=== PATIENT | male | born 1955 | race Two or more races ===

== ENCOUNTER 2019-11-20 05:36 | Inpatient (IN) | payer OTHER ==
[~2019-11-20] VITALS: Ht 185.4 cm; Wt 111.6 kg
[2019-11-20] VITALS (12 sets, daily range): BP systolic 118–146; BP diastolic 72–100
[2019-11-20] MEDS ORDERED: Succinylcholine 20mg/ml 10ml vial ONE (06:26)
[2019-11-20] MEDS ORDERED: Rocuronium Bromide 100mg/10ml Inj IV ONE (06:26)
[2019-11-20] MEDS ORDERED: Midazolam 2mg/2ml Inj ONE (06:34)
[2019-11-20] MEDS ORDERED: Lidocaine 1% MPF 10mg/ml 5ml ONE (06:34)
[2019-11-20] MEDS ORDERED: fentaNYL 100 mcg/2 mL IV ONE (06:34)
[2019-11-20] MEDS ORDERED: Phenylephrine 10mg/ml Vial ONE (06:34)
[2019-11-20] MEDS ORDERED: ASPIRIN81 MG ORAL (06:35)
[2019-11-20] MEDS ORDERED: Sterile Water Irrig 1000ml IRRIG ONE (07:00)
[2019-11-20] MEDS ORDERED: ceFAZolin sod 2 GM in NS 55 ML IVPB ONE (07:00)
[2019-11-20] MEDS ORDERED: NS Irrig 1000ml ONE (07:00)
[2019-11-20] MEDS ORDERED: propofoL 1,000mg/100ml IV ONE (07:00)
[2019-11-20] MEDS ORDERED: LR 1000ml ONE (07:00)
[2019-11-20] MEDS ORDERED: Thrombin 5000 units TOPIC ONE ×2 (07:03→08:05)
[2019-11-20] MEDS ORDERED: Vancomycin 1gm vial IVPB ONE (07:03)
[2019-11-20] MEDS ORDERED: Gelfoam Size TOPIC ONE ×2 (07:03→08:05)
[2019-11-20] MEDS ORDERED: Bacitracin 50000 Units Vial ONE (07:04)
--- NOTE | 2019-11-20 07:13 | Pre-Procedure Note/Attestation ---
Pre-Procedure Note/Attestation Complete Prior to Procedure Planned Procedure: not applicable Procedure Narrative: Anterior cervical discectomy and fusion of cervical 45,56,67 Indications for Procedure Pre-Operative Diagnosis: herniation and stenosis of C45,56,67 Attestation I attest that I discussed the nature of the procedure; its benefits; risks and complications; and alternatives (and the risks and benefits of such alternatives ), prior to the procedure, with the patient (or the patient's legal district representative). I attest that, if there was a reasonable possibility of needing a blood transfusion, the patient (or the patient's legal district representative) was given the [facility] standardized written summary, pursuant to the [place] Blood Safety Act ([place] Health and Safety Code # 1645, as amended). I attest that I re-evaluated the patient just prior to the surgery and that there has been no change in the patient's H&P, except as documented below: Nestor Maldonado MD Nov 20, 2019 07:13
--- NOTE | 2019-11-20 07:14 | Brief Operative Note ---
Immediate Post Operative Note Operative Note Chief Complaint: neck pain and radiculopathy Pre-op Diagnosis: herniation and stenosis of C45,56,67 Procedure: Anterior cervical discectomy and fusion of cervical 45,56,67 Post-op Diagnosis: same as pre-op Findings: consistent w/pre-op dx studies Surgeon: Joel Jacquard Card Cutter: Francisco Anesthesiologist: JUS Anesthesia: general Specimen: none Complications: none Condition: stable Fluids: IVF Estimated Blood Loss: minimal Drains: none Implant(s) used?: Yes - 3 nuvasive interlock c sz 5x2 sz 6x1 screws 13mmx9 Nestor Maldonado MD Nov 20, 2019 07:14
[2019-11-20] MEDS ORDERED: HYDROcodone/Acetamin 7.5/325 tab ORAL PRN ×2 (07:15)
[2019-11-20] MEDS ORDERED: HYDROcodone/Acetamin 5/325 tab ORAL PRN (07:15)
[2019-11-20] MEDS ORDERED: Morphine Sulfate 4mg/ml Inj (IV USE ONLY) IV PRN ×2 (07:15)
[2019-11-20] MEDS ORDERED: Naloxone 0.4mg/ml Inj IVP PRN (07:15)
[2019-11-20] MEDS ORDERED: Chloraseptic Spray 20mL Bottle ORAL PRN (07:15)
[2019-11-20] MEDS ORDERED: Milk of Magnesia 30ml Ud ORAL PRN (07:15)
[2019-11-20] MEDS ORDERED: HYDROmorphone 1mg/ml Carpuject IVP PRN (07:15)
[2019-11-20] MEDS ORDERED: Morphine Sulfate 2mg/ml Inj(IV/IM USE ONLY) IV PRN (07:15)
[2019-11-20] MEDS ORDERED: Metoclopramide 10mg/2ml Inj IVP PRN (07:15)
[2019-11-20] MEDS ORDERED: Morphine Sulfate 10mg/ml Inj ONE (08:06)
[2019-11-20] MEDS ORDERED: Sodium Chloride 10ml vial INJ ONE (08:07)
[2019-11-20] MEDS ORDERED: Glycopyrrolate 0.2mg/ml 1ml Vial ONE (08:10)
[2019-11-20] MEDS ORDERED: Ketorolac 30mg Inj ONE (08:10)
[2019-11-20] MEDS ORDERED: Neostigmine 1mg/ml 10ml Inj ONE (08:10)
--- NOTE | 2019-11-20 08:24 | Anethesia Preoperative Eval ---
Anesthesia Pre-op PMH/ROS General Date of Evaluation: Nov 20, 2019 Time of Evaluation: 06:52 Anesthesiologist: Yasir ASA Score: ASA 2 Mallampati Score Class I : Soft palate, uvula, fauces, pillars visible Class II: Soft palate, uvula, fauces visible Class III: Soft palate, base of uvula visible Class IV: Only hard plate visible Mallampati Classification: Class II Surgeon: Joel Diagnosis: Cervical radiculopathy Surgical Procedure: ACDF Anesthesia History: none Social History: smoking Family History: no anesthesia problems Allergies: Coded Allergies: No Known Allergies (Unverified , 11/20/19) Medications: see eMAR Patient NPO?: Yes Past Medical History Cardiovascular: Reports: HTN - borderline; Denies: CAD, [place], valve dz, arrhythmia, other Pulmonary: Reports: JOSE; Denies: asthma, COPD, other Gastrointestinal/Genitourinary: Reports: GERD - mild; Denies: CRI, ESRD, other Neurologic/Psychiatric: Reports: other - chrnic pain; Denies: dementia, CVA, depression/anxiety, TIA Endocrine: Denies: DM, hypothyroidism, steroids, other HEENT: Denies: cataract (L), cataract (R), glaucoma, MENOMINEE (L), MENOMINEE (R), other Hematology/Immune: Denies: anemia, DVT, bleeding disorder, other Musculoskeletal/Integumentary: Denies: OA, RA, DJD, DDD, edema, other Other: obesity PMH Narrative: as above PSxH Narrative: Hand Sx Anesthesia Pre-op Phys. Exam Physician Exam Last Vital Signs Date Time Temp Pulse Resp B/P (MAP) Pulse Ox O2 Delivery O2 Flow Rate FiO2 11/20/19 06:23 Room Air 11/20/19 06:22 97.0 95 20 128/84 (99) 98 Constitutional: NAD Neurologic: CN 2-12 intact Cardiovascular: RRR, no M/R/G Respiratory: CTA Gastrointestinal: other - obesity Airway Exam Mallampati Score: Class III MO: limited Neck: Short ROM: limited Teeth: missing Dentures: upper, lower Anesthesia Pre-op A/P Labs see chart Studies Pre-op Studies: EKG - NSR, CXR - WNL, echo - EF 55-60% Risk Assessment & Plan Assessment: ASA 2 Plan: GA with ETT neuromonitoring Status Change Before Surgery: No Pre-Antibiotics Drug: Ancef 2gr Given Within 1 Hr of Incision: Yes Time Given: 07:36 Quintin Cooley MD Nov 20, 2019 08:24
[2019-11-20] MEDS ORDERED: LR 1000ml 1,000 ML IVLG SCH (08:26)
[2019-11-20] MEDS ORDERED: Ketorolac 30mg Inj IV PRN (08:30)
[2019-11-20] MEDS ORDERED: Hydromorphone 0.5mg/0.5ml inj IVP PRN (08:30)
[2019-11-20] MEDS ORDERED: DiphenhydrAMINE 50mg/ml Inj IVP PRN (08:30)
[2019-11-20] MEDS ORDERED: Acetaminophen (Non formulary) 100 ML IV ONE (08:30)
--- NOTE | 2019-11-20 10:43 | Immediate Post-Op Evaluation ---
Immediate Post-Op Evalulation Immediate Post-Op Evalulation Procedure: ACDF C4-C5 C5-C6 C6-C7 Date of Evaluation: Nov 20, 2019 Time of Evaluation: 10:42 IV Fluids: 1200 Blood Products: none Estimated Blood Loss: 50 Urinary Output: 200 Blood Pressure Systolic: 136 Blood Pressure Diastolic: 76 Pulse Rate: 89 Respiratory Rate: 22 O2 Sat by Pulse Oximetry: 98 Temperature (Fahrenheit): 98.6 Pain Score (1-10): 2 Nausea: No Vomiting: No Complications none Patient Status: reacts, patent, extubated, none Hydration Status: adequate Quintin Cooley MD Nov 20, 2019 10:43
--- NOTE | 2019-11-20 14:19 | Diagnostic Imaging Report ---
INDICATION: Pain, intraoperative TECHNIQUE: Intraoperative imaging Fluoroscopy time: 17.8 seconds Total dose: 0.18633 mGym2 Total number of images: 6 COMPARISON: None FINDINGS: Intraoperative images demonstrate surgical tools projecting at level of C4-5 and C6-7 discs. Subsequent images document placement of anterior fusion hardware bridging C4-5, C5-6, C6-7. IMPRESSION: Intraoperative imaging, as described
[2019-11-20] MEDS: NS w/KCl 20mEq 1000ml 1,000 ML IV SCH ×2 (14:36→22:54)
[2019-11-20] MEDS: ceFAZolin sod 1 GM in D5W 55 ML IV SCH (16:09)
[2019-11-20] MEDS: Docusate 100mg cap ORAL SCH (17:15)
--- NOTE | 2019-11-20 18:15 | Operative Note - Dictated ---
DATE OF OPERATION: 11/20/2019 SURGEON: Nestor Maldonado MD, Orthopaedic Spine Surgeon. RECEIVER/LABORER: NICOLASA Ordonez PREOPERATIVE DIAGNOSES: 1. Intractable neck pain. 2. Radiculopathy. 3. Herniation, C4-C5, C5-C6, C6-C7. 4. Neural foraminal stenosis, C4-C5, C5-C6, C6-C7. 5. Stenosis. POSTOPERATIVE DIAGNOSES: 1. Intractable neck pain. 2. Radiculopathy. 3. Herniation, C4-C5, C5-C6, C6-C7. 4. Neural foraminal stenosis, C4-C5, C5-C6, C6-C7. 5. Stenosis. PROCEDURE PERFORMED: 1. Anterior cervical discectomy and fusion of C4-C5, C5-C6, and C6-C7. 2. Use of intraoperative microscope. 3. Motor-evoked potential monitoring. 4. Somatosensory-evoked potential monitoring. 5. Supervision and interpretation of fluoroscopy. COMPLICATIONS: None. ANESTHESIA: General. ESTIMATED BLOOD LOSS: Less than 100 mL. INDICATIONS FOR SURGERY: This patient is a 64-year-old male who has a history of intractable neck pain; radiculopathy; herniation of C4-C5, C5-C6, C6-C7; neural foraminal stenosis of C4-C5, C5-C6, C6-C7; and stenosis. We tried a course of conservative management, but despite this course, there was still a significant component of persistent, recalcitrant neck pain and arm pain. The MRI demonstrated significant neural foraminal compromise secondary to disc herniations at C4-C5, C5-C6, C6-C7. We had a long discussion with Jeremy regarding the risks and benefits of surgery. Our discussion included, but was not limited to nonoperative management, chiropractic management, another epidural steroid injection as well as definitive management in the form of surgery. We recommended an anterior cervical discectomy and fusion of C4-C5, C5-C6, and C6-C7 as final definitive management. We reviewed the risks and benefits of surgery with the patient. Our discussion included a comprehensive review of the clinical issues and the nature of the clinical decision. We reviewed the alternatives, including doing nothing. The patient elected to proceed accordingly with anterior cervical discectomy and fusion of C4-C5, C5-C6, and C6-C7. We had a long discussion regarding the risks, alternatives, and benefits of surgery. Our description of the risks included a discussion in person as well as a signed consent, which detailed all pertinent risks from the procedure itself. Briefly, our discussion included but was not limited to infection, bleeding, pseudarthrosis, spinal cord injury, neurovascular injury, dural tear, CSF leak, neuropathy, paralysis, permanent weakness/drop foot/drop arm, paresthesias, blindness, palsy, and weakness. The patient understood there may be a need for a revision surgery or additional procedures. Approach-related complications including dysphonia, dysphagia, blindness, permanent vocal cord and neural injury, hematoma, swallowing and breathing difficulty. Medical complications were reviewed including liver, kidney, shock, cardiopulmonary failure, anesthesia complications including , swelling, damage to the musculature, larynx/voice injury or loss, esophagus/throat, trachea, blood vessels and muscles/muscular sprain and lungs/pneumothorax during this surgical procedure; injury to deeper structures may be temporary or permanent. After this review of risks, the patient understood these and elected to proceed. A written and verbal consent was given. We discussed the pros and cons of all the alternatives. We discussed the uncertainties associated with the decision. Afterwards, I assessed the patient's understanding and explored their preferences. All questions were answered and no guarantees were given. Medical clearance was obtained prior to surgery. INTRAOPERATIVE FINDINGS: C4-C5: At this level, the disc space was collapsed. The disc itself was desiccated. There were no anterior osteophytes noted. Posterior to the disc, there was a tear visualized in the posterior longitudinal ligament on the left neural foramina. This tear was approximately 10 degrees cephalad to caudad in line with the posterior longitudinal ligament. Through this tear, I mobilized a small fragment of disc, which led to a larger fragment and nucleus pulposus encroaching the left neural foramina. There was severe amount of pressure on the neural foramina on the left side compared to on the right side, which was mild to moderate. C5-C6: The disc at C5-C6 was decreased in height. The disc itself was dry and desiccated. There was a discrete tear noted on the left aspect of the posterior longitudinal ligament, which was approximately 10 degrees cephalad to caudad with a small fragment of disc, which was probed and led to a larger disc herniation and nuclear tissue, which was encroaching on the neural foramina left-sided, which was severe in regard to the amount of pressure encountered on the neural elements as compared to the right side, which was moderate. C6-C7: The disc was collapsed. There was some element of desiccation of the disc ; however, this was softer of the three discs with less disc height collapse compared to the others. Upon mobilization of the disc on the posterior margin, I noted a tear again on the posterior longitudinal ligament, which was approximately 10 degrees cephalad to caudad. This tear was mobilized with a Microsect 1-B curette, which led to the posterior fragment of a disc herniation. This was resected with a combination of Kerrison 1 and 2 rongeurs, as it led to severe amount of pressure on the left neural foramina and a moderate amount of pressure on the right neural foramina. DESCRIPTION OF PROCEDURE: Under the benefit of general endotracheal anesthesia and with the assistance of the entire operative team, the patient was moved from the rashton onto the operative table in the supine position. The head was secured and carefully positioned appropriately. Bilateral arms were secured with Gel Pads and foam and all bony prominences were padded. For the bilateral lower extremities, SCD and FELIX hose were placed for DVT prophylaxis. A surgical timeout was called, which corroborated our planned procedure of anterior cervical discectomy and fusion of C4-C5, C5-C6, and C6-C7. Preoperative antibiotics were administered within 30 minutes of the incision for antibiotic prophylaxis. Using lateral fluoroscopic radiography, the operative levels were delineated. Next, the wound was prepped and draped with chlorhexidine and sterile drapes. An incision was based on lateral fluoroscopy and we centered our incision at the C4-C5, C5-C6, and C6-C7 interspace and next, using a standard Darden-Nichols anterior-based approach, the incision was taken down through the skin and subcutaneous tissues until the vertebral bodies and their corresponding disc spaces were visualized. A needle was placed into the interspace to confirm placement of the operative interspace and we performed the remainder of procedure under microscopic visualization. Next, using bipolar and Bovie cautery to ensure meticulous hemostasis, the longus colli was mobilized bilaterally and retractors were placed deep to the longus colli bilaterally to address retraction. Next, we turned our attention to the radical anterior discectomy. This was initially performed at C4-C5 first by using a 15 blade scalpel followed by narrow pituitaries and a Microsect 5-B curette was used to denude the endplate of all cartilaginous tissue. Next, using a Midas Jorge AM8 drill bit, the partial vertebrectomy was performed in a tzhm-rp-cqct and wnfzl-mg-mxdml fashion, and ultimately the posterior uncinate joints bilaterally and posterior osteophytic lips and margins causing central and lateral impingement were carefully denuded until visualization of the posterior longitudinal ligament was possible. An endplate preparation was performed in the exact same fashion using an intervertebral tag maker, sequential distraction was obtained throughout the disc space. We saw a tear/rent in the PLL and this was carefully mobilized and dissected using a Microsect 1-B curette until we visualized a broad-based disc herniation with compression of the spinal cord as well as neural foramina, which was left more than right sided. This neural foraminal compression was carefully resected using a Kerrison-1 and Kerrison-2 rongeurs until complete decompression of the spinal cord was visualized and complete decompression of the neural foramina and nerve root therein as well as the axilla and lateral margin of the nerve root was visualized and subsequently completely decompressed. The family was notified at one-hour intervals throughout the procedure to provide for consistent updates. Next, we turned our attention to the radical anterior discectomy at the C5-C6 level first by using a 15 blade scalpel followed by narrow pituitaries and a Microsect 5-B curette was used to denude the endplate of all cartilaginous tissue. Next, using a Midas Jorge AM8 drill bit, the partial vertebrectomy was performed in a htcu-ku-npwp and dhddo-zv-jvmtt fashion, and ultimately the posterior uncinate joints bilaterally and posterior osteophytic lips and margins causing central and lateral impingement were carefully denuded until visualization of the posterior longitudinal ligament was possible. An endplate preparation was performed in the exact same fashion using an intervertebral tag maker, sequential distraction was obtained throughout the disc space. We saw a tear/rent in the PLL and this was carefully mobilized and dissected using a Microsect 1-B curette until we visualized a broad-based disc herniation with compression of the spinal cord as well as neural foramina, which was left more than right sided. This neural foraminal compression was carefully resected using a Kerrison-1 and Kerrison-2 rongeurs until complete decompression of the spinal cord was visualized and complete decompression of the neural foramina and nerve root therein as well as the axilla and lateral margin of the nerve root was visualized and subsequently completely decompressed. Next, we turned our attention to the radical anterior discectomy at the C6-C7 level first by using a 15 blade scalpel followed by narrow pituitaries and a Microsect 5-B curette was used to denude the endplate of all cartilaginous tissue. Next, using a ParasitX AM8 drill bit, the partial vertebrectomy was performed in a sdim-er-wpev and jhthu-hb-oolky fashion, and ultimately the posterior uncinate joints bilaterally and posterior osteophytic lips and margins causing central and lateral impingement were carefully denuded until visualization of the posterior longitudinal ligament was possible. An endplate preparation was performed in the exact same fashion using an intervertebral tag maker, sequential distraction was obtained throughout the disc space. We saw a tear/rent in the PLL and this was carefully mobilized and dissected using a Microsect 1-B curette until we visualized a broad-based disc herniation with compression of the spinal cord as well as neural foramina, which was left more than right sided. This neural foraminal compression was carefully resected using a Kerrison-1 and Kerrison-2 rongeurs until complete decompression of the spinal cord was visualized and complete decompression of the neural foramina and nerve root therein as well as the axilla and lateral margin of the nerve root was visualized and subsequently completely decompressed. We next turned our attention towards trialing our implant within the disc space. At- C4-C5 and C5-C6, we initially tried size 5 trial from the NuVasive Interlock C system at each level, which appeared to be appropriate under AP and lateral fluoroscopy as well as in terms of its height, depth, width, and lack of toggle. The PEEK (polyetheretherketone) interbody cages were then both packed with 1 mL of allograft bone from Osteocel and local autograft bone matrix. Next, these were then carefully advanced and secured into their intervertebral spaces under direct visualization and with supervision of AP and lateral fluoroscopic views. This was then performed at the next level, C6-C7. We initially tried size 5 and afterwards size 6 trial from the NuVasive Interlock C system at this level, which appeared to be appropriate under AP and lateral fluoroscopy as well as in terms of its height, depth, width, and lack of toggle. The PEEK (polyetheretherketone) interbody cage was then packed with 1 mL of allograft bone from Osteocel and local autograft bone matrix. Next, these were then carefully advanced and secured into their intervertebral spaces under direct visualization and with supervision of AP and lateral fluoroscopic views. We next turned our attention towards plating. Plating was performed at C4-C5 with NuVasive Interlock-C plating system. A total of three screws of size 14 mm in length were inserted and confirmed under AP and lateral fluoroscopy and confirmed to be in excellent position. This was then performed at the next level, C5-C6. Plating was performed with NuVasive Interlock-C plating system. A total of three screws of size 14 mm in length were inserted and confirmed under AP and lateral fluoroscopy and confirmed to be in excellent position. This was then performed at the next level, C6-C7. Plating was performed with NuVasive Interlock-C plating system. A total of three screws of size 14 mm in length were inserted and confirmed under AP and lateral fluoroscopy and confirmed to be in excellent position. After a finger sweep, we confirmed removal of all sponges. The retractor was removed and we next turned our attention to meticulous hemostasis with FloSeal and bipolar cautery. After the sponge and needle count was again found to be correct with our second count, we next turned our attention to closure. The wound was again copiously irrigated with antibiotic-impregnated saline. Closure consisted of 4-0 clear nylon for the platysma, and 6-0 clear nylon for the superficial skin. Final skin closure and dressings consisted of Dermabond. Prior to final closure, a final radiograph was obtained which demonstrated the hardware was intact with excellent position throughout. The patient tolerated the procedure well. The patient was carefully extubated after the conclusion of surgery. We discussed the findings of the surgery with the family upon completion of the case. At this point, the patient was transferred to the spine floor for further observation. Nestor Maldonado M.D. DR: Nohemy JOB#: [id number] CC:
[2019-11-21] VITALS: BP 137/98
[2019-11-21] MEDS: ceFAZolin sod 1 GM in D5W 55 ML IV SCH ×2 (00:24→08:21)
[2019-11-21 08:15] VITALS: BP 141/87
[2019-11-21] MEDS: Docusate 100mg cap ORAL SCH (08:22)
[2019-11-21] MEDS: NS w/KCl 20mEq 1000ml 1,000 ML IV SCH (09:00)
[2019-11-21] MEDS ORDERED: NORCO 10-325 T1 EACH ORAL (10:55)
[2019-11-21 11:51] VITALS: BP 141/87
--- NOTE | 2019-11-21 11:51 | 48 Hour Post Anesthesia Eval ---
Post Anesthesia Evaluation Procedure: ACDF C4-C5 C5-C6 C6-C7 Date of Evaluation: Nov 21, 2019 Time of Evaluation: 11:50 Blood Pressure Systolic: 141 0: 87 Pulse Rate: 94 Respiratory Rate: 20 Temperature (Fahrenheit): 97.9 O2 Sat by Pulse Oximetry: 97 Airway: patent Nausea: No Vomiting: No Pain Intensity: 3 Hydration Status: adequate Cardiopulmonary Status: Stable Mental Status/LOC: patient returned to baseline Follow-up Care/Observations: 0 Post-Anesthesia Complications: 0 Follow-up care needed: N/A Nicola Buchanan MD Nov 21, 2019 11:51
--- NOTE | 2019-11-22 15:56 | Discharge Summary ---
Discharge Summary Hospital Course Date of Admission Nov 20, 2019 at 05:36 Date of Discharge Nov 21, 2019 at 13:00 Admitting Diagnosis Intractable neck pain. Radiculopathy. Herniation, C4-C5, C5-C6, C6-C7. Neural foraminal stenosis, C4-C5, C5-C6, C6-C7. Reason for Hospitalization: Patient was admitted for elective surgery HPI Jeremy Magallanes , 64 year old male , admitted on Nov 20, 2019 at 05:36 for herniated nucleus pulposus, tractable neck pain and cervical radiculopathy. Patient was admitted for elective surgery Procedures s/p 11/20/[address] Maldonado 1. Anterior cervical discectomy and fusion of C4-C5, C5-C6, and C6-C7. 2. Use of intraoperative microscope. 3. Motor-evoked potential monitoring. 4. Somatosensory-evoked potential monitoring. 5. Supervision and interpretation of fluoroscopy. Hospital Course status post surgery course of recovery uneventful initially IV fluids prophylactic antibiotic and steroids provided neurovascular status closely monitored, remained stable incision clean , dry ,and intact ; dressed pain management was addressed pain was controlled remained hemodynamically stable ambulated with PT fall precautions maintained; safe for ambulation tolerated diet , IV fluids discontinued Cepacol spray was on board as needed for throat discomfort GI prophylaxis provided antiemetics were on board as needed voided freely bowel regimen instituted patient was stable for discharge discharge instructions provided follow up with surgeon in the office as advised FINAL DIAGNOSES 1. Intractable neck pain. 2. Radiculopathy. 3. Herniation, C4-C5, C5-C6, C6-C7. 4. Neural foraminal stenosis, C4-C5, C5-C6, C6-C7. 5. Stenosis. 6. s/p Anterior cervical discectomy and fusion of C4-C5, C5-C6, and C6-C7. Discharge Medications Continued Medications: Aspirin* (Aspirin*) 81 Mg Tab.chew 81 MG ORAL DAILY for as prescribed, TAB Hydrocodone Bit/Acetaminophen 10-325* ([place] 10-325*) 1 Each Tablet 1 TAB ORAL Q8H PRN for For Pain, #90 TAB 0 Refills (This prescription has been renewed) PRN PAIN Discharge Condition Upon Discharge: stable Discharge Vital Signs Last Vital Signs Date Time Temp Pulse Resp B/P (MAP) Pulse Ox O2 Delivery O2 Flow Rate FiO2 11/21/19 11:51 94 20 97 11/21/19 09:00 Room Air 11/21/19 08:15 97.9 141/87 (105) 11/20/19 11:30 3 Discharge Disposition Patient was discharged to Home (01) Discharge Instructions Discharge Instructions Special Instructions I have been assigned to complete a D/C Summary on this account. I was not involved in the patient management Ermelinda Marie NP Nov 22, 2019 15:56
== END 2019-11-21 13:00 | disposition home or self-care (01) | DRG 473 ==
LOC: SDSOVERFLO 05:36 → 3E 11:35
DX: M50.121 Cervical disc disorder at C4-C5 level with radiculopathy (principal); M48.02 Spinal stenosis, cervical region; V49.9XXS Car occupant (driver) (passenger) injured in unspecified traffic accident, sequela; I10 Essential (primary) hypertension; Z87.891 Personal history of nicotine dependence; Z79.82 Long term (current) use of aspirin
CPT/HCPCS: 36415; 72040; 76000; 86850; 86900; 86901; 87081; J2250; J2370; J2710

== ENCOUNTER 2020-05-16 07:04 | Inpatient (IN) | payer OTHER ==
[~2020-05-16] VITALS: Ht 185.4 cm; Wt 111.1 kg
[2020-05-16] VITALS (23 sets, daily range): BP systolic 129–168; BP diastolic 80–104
[~2020-05-16 07:04] MED LIST: ASPIRIN81 MG ORAL; NORCO 10-325 T1 EACH ORAL; ceFAZolin sod 2 GM in NS 55 ML IVPB ONE
--- NOTE | 2020-05-16 07:26 | Pre-Procedure Note/Attestation ---
Pre-Procedure Note/Attestation Complete Prior to Procedure Planned Procedure: bilateral Procedure Narrative: Bilateral Hemilaminotomy Foraminotomy at and Left sided Microdiscectomy and Decompression at L45 and L5S1 Indications for Procedure Pre-Operative Diagnosis: L45 and L5S1 herniation Attestation I attest that I discussed the nature of the procedure; its benefits; risks and complications; and alternatives (and the risks and benefits of such alternatives), prior to the procedure, with the patient (or the patient's legal physician representative). I attest that, if there was a reasonable possibility of needing a blood transfusion, the patient (or the patient's legal physician representative) was given the [place] [facility] standardized written summary, pursuant to the [place] Blood Safety Act ([place] Health and Safety Code # 1645, as amended). I attest that I re-evaluated the patient just prior to the surgery and that there has been no change in the patient's H&P, except as documented below: Nestor Maldonado MD May 16, 2020 07:26
--- NOTE | 2020-05-16 07:27 | Brief Operative Note ---
Immediate Post Operative Note Operative Note Chief Complaint: back pain and radiculopathy Pre-op Diagnosis: L45 and L5S1 herniation Procedure: Bilateral Hemilaminotomy Foraminotomy at and Left sided Microdiscectomy and Decompression at L45 and L5S1 Post-op Diagnosis: same as pre-op Findings: consistent w/pre-op dx studies Surgeon: Joel Edge Cutting Machine Operator: Francisco Anesthesiologist: Chanel Anesthesia: general Specimen: none Complications: none Condition: stable Fluids: IVF Estimated Blood Loss: minimal Drains: none Implant(s) used?: No Nestor Maldonado MD May 16, 2020 07:27
[2020-05-16] MEDS ORDERED: Morphine Sulfate 2mg/ml Inj(IV/IM USE ONLY) IV PRN (07:30)
[2020-05-16] MEDS ORDERED: Metoclopramide 10mg/2ml Inj IVP PRN ×2 (07:30→08:45)
[2020-05-16] MEDS ORDERED: Chloraseptic Spray 20mL Bottle ORAL PRN (07:30)
[2020-05-16] MEDS ORDERED: Naloxone 0.4mg/ml Inj IVP PRN (07:30)
[2020-05-16] MEDS ORDERED: HYDROmorphone 1mg/ml Carpuject IVP PRN (07:30)
[2020-05-16] MEDS ORDERED: HYDROcodone/Acetamin 5/325 tab ORAL PRN ×2 (07:30→08:45)
[2020-05-16] MEDS ORDERED: HYDROcodone/Acetamin 7.5/325 tab ORAL PRN ×3 (07:30→08:45)
[2020-05-16] MEDS ORDERED: Milk of Magnesia 30ml Ud ORAL PRN (07:30)
[2020-05-16] MEDS ORDERED: Morphine Sulfate 4mg/ml Inj (IV USE ONLY) IV PRN ×2 (07:30)
--- NOTE | 2020-05-16 08:31 | Anethesia Preoperative Eval ---
Anesthesia Pre-op PMH/ROS General Date of Evaluation: May 16, 2020 Time of Evaluation: 09:39 Anesthesiologist: Chanel ASA Score: ASA 3 Mallampati Score Class I : Soft palate, uvula, fauces, pillars visible Class II: Soft palate, uvula, fauces visible Class III: Soft palate, base of uvula visible Class IV: Only hard plate visible Mallampati Classification: Class II Surgeon: Joel Diagnosis: Back Pain Surgical Procedure: L4-5,L5-S1 Microdiscectomy Anesthesia History: none Family History: no anesthesia problems Allergies: Coded Allergies: No Known Allergies (Unverified , 05/13/20) Medications: see eMAR Patient NPO?: Yes Past Medical History Cardiovascular: Reports: HTN Other: obesity - BMI 33 Anesthesia Pre-op Phys. Exam Physician Exam Last Vital Signs Date Time Temp Pulse Resp B/P (MAP) Pulse Ox O2 Delivery O2 Flow Rate FiO2 05/16/20 08:24 Room Air 05/16/20 07:40 97.6 75 18 145/92 (109) 99 Constitutional: NAD Neurologic: CN 2-12 intact Cardiovascular: RRR Respiratory: CTA Gastrointestinal: S/NT/ND Airway Exam Mallampati Score: Class II MO: full ROM: full Teeth: missing, intact Anesthesia Pre-op A/P Risk Assessment & Plan Assessment: ASA 3 Plan: GA, SED, GlideScope Status Change Before Surgery: No Pre-Antibiotics Dru Grams Ancef IV Given Within 1 Hr of Incision: Yes Time Given: 09:51 Nicola Buchanan MD May 16, 2020 08:31
--- NOTE | 2020-05-16 08:32 | Immediate Post-Op Evaluation ---
Immediate Post-Op Evalulation Immediate Post-Op Evalulation Procedure: L4-5,L5-S1 Microdiscectomy Date of Evaluation: May 16, 2020 Time of Evaluation: 12:45 IV Fluids: 1000 LR Blood Products: 0 Estimated Blood Loss: 100 Urinary Output: 0 Blood Pressure Systolic: 158 Blood Pressure Diastolic: 105 Pulse Rate: 92 Respiratory Rate: 16 O2 Sat by Pulse Oximetry: 97 Temperature (Fahrenheit): 97.6 Pain Score (1-10): 2 Nausea: No Vomiting: No Complications 0 Patient Status: awake, reacts, patent, extubated, none Hydration Status: adequate Dru Grams Ancef IV Given Within 1 Hr of Incision: Yes Time Given: 09:51 Nicola Buchanan MD May 16, 2020 08:32
--- NOTE | 2020-05-16 08:33 | 48 Hour Post Anesthesia Eval ---
Post Anesthesia Evaluation Procedure: L4-5,L5-S1 Microdiscectomy Date of Evaluation: May 16, 2020 Time of Evaluation: 14:56 Blood Pressure Systolic: 145 0: 98 Pulse Rate: 84 Respiratory Rate: 18 Temperature (Fahrenheit): 98 O2 Sat by Pulse Oximetry: 99 Airway: patent Nausea: No Vomiting: No Pain Intensity: 2 Hydration Status: adequate Cardiopulmonary Status: Stable Mental Status/LOC: patient returned to baseline Follow-up Care/Observations: 0 Post-Anesthesia Complications: 0 Follow-up care needed: N/A Nicola Buchanan MD May 16, 2020 08:33
[2020-05-16] MEDS ORDERED: Sodium Chloride 10ml vial INJ ONE (08:37)
[2020-05-16] MEDS ORDERED: Lidocaine 1% MPF 10mg/ml 5ml ONE (08:37)
[2020-05-16] MEDS ORDERED: fentaNYL 100 mcg/2 mL IV ONE (08:38)
[2020-05-16] MEDS ORDERED: Meperidine 25mg/1ml Inj (FOR RIGORS ONLY) IV PRN (08:45)
[2020-05-16] MEDS ORDERED: Labetalol 5mg/ml 20ml vial IV PRN (08:45)
[2020-05-16] MEDS ORDERED: fentaNYL 100 mcg/2 mL IV PRN (08:45)
[2020-05-16] MEDS ORDERED: DiphenhydrAMINE 50mg/ml Inj IVP PRN (08:45)
[2020-05-16] MEDS ORDERED: Atropine Sulfate 0.4mg/ml inj IVP PRN (08:45)
[2020-05-16] MEDS ORDERED: Acetaminophen (Non formulary) 100 ML IV ONE (08:45)
[2020-05-16] MEDS ORDERED: Hydromorphone 0.5mg/0.5ml inj IVP PRN (08:45)
[2020-05-16] MEDS ORDERED: Midazolam 2mg/2ml Inj IVP PRN (08:45)
[2020-05-16] MEDS ORDERED: Ketorolac 30mg Inj IV PRN ×2 (08:45)
[2020-05-16] MEDS ORDERED: LORazepam Inj 2mg/ml 1ml IV PRN (08:45)
[2020-05-16] MEDS ORDERED: oxyCODONE HCL/Acetaminophen 5/325mg ORAL PRN (08:45)
[2020-05-16] MEDS ORDERED: LR 1000ml 1,000 ML IVLG SCH (08:45)
[2020-05-16] MEDS ORDERED: Thrombin 5000 units TOPIC ONE (09:29)
[2020-05-16] MEDS ORDERED: Vancomycin 1gm vial IVPB ONE (09:29)
[2020-05-16] MEDS ORDERED: Ropivacaine 5mg/ml Vial 30ml INJ ONE ×2 (09:30→12:32)
[2020-05-16] MEDS ORDERED: Gelfoam Size TOPIC ONE (09:30)
[2020-05-16] MEDS ORDERED: Bacitracin 50000 Units Vial ONE (09:30)
[2020-05-16] MEDS ORDERED: Lidocaine 1% Plain 30 ml INJ ONE (09:40)
[2020-05-16] MEDS ORDERED: Glycopyrrolate 0.2mg/ml 1ml Vial ONE (11:53)
--- NOTE | 2020-05-16 13:52 | Diagnostic Imaging Report ---
INDICATION: Pain, intraoperative TECHNIQUE: Intraoperative imaging Fluoroscopy time: 4.3 seconds Total dose: 0.46273 mGym2 Total number of images: 1 COMPARISON: None FINDINGS: Intraoperative images demonstrates surgical tool posterior to what is presumably L4-5 IMPRESSION: Intraoperative imaging, as described
--- NOTE | 2020-05-16 14:40 | NUR ---
NURSE NOTES: Patient arrived to unit from PACU in no distress, received report from Julienne BRUNER. Patient is awake and oriented, pain minimal and tolerable, surgical site dressing clean, dry, intact. Patient denies tingling in extremities, states he has numbness in feet that is improved from pre-surgical numbness. SCD's on. IV intact, patent. Patient updated on plan of care. Side rails upx2, bed low and locked, call light within reach.
[2020-05-16] MEDS: NS w/KCl 20mEq 1000ml 1,000 ML IV SCH (17:05)
[2020-05-16] MEDS: Docusate 100mg cap ORAL SCH (18:29)
[2020-05-16] MEDS: ceFAZolin sod 1 GM in D5W 55 ML IV SCH (18:29)
--- NOTE | 2020-05-16 19:22 | NUR ---
NURSE HAND-OFF: Important Events on Shift: post-op Patient Status: stable Diet: reg Pending Orders: n/a Pending Results/Labs: n/a Pending MD notification: n/a Latest Vital Signs: Temperature 98.5 , Pulse 91 , B/P 136 /95 , Respiratory Rate 18 , O2 SAT 95 Vital Sign Comment: VS stable Latest Rodriguez Fall Score: 35 Fall Risk: Medium Risk Safety Measures: Call light , Bed Alarm , Side Rails Side Rails x1, Bed position Low and Locked. Fall Precautions: Patient Fall Education Report given to Devan BRUNER.
--- NOTE | 2020-05-16 19:45 | NUR ---
NURSE NOTES: Received report from Mayra BRUNER. Patient is awake, alert, and oriented x4. On room air, breathing is even and unlabored. No complain of pain or distress noted. Surgical dressing dry, intact, and clean. IV right hand intact and patent with no bleeding noted. IVF running as ordered. Bed low and locked. Call light within reach.
--- NOTE | 2020-05-16 22:29 | Operative Note - Dictated ---
DATE OF OPERATION: 05/16/2020 SURGEON: Nestor Maldonado MD, Orthopaedic Spine Surgeon. SLOPE RUNNER SURGEON: Belia Singh MD ANESTHESIA: General endotracheal anesthesia. PREOPERATIVE DIAGNOSES: 1. Intractable back pain. 2. Intractable leg pain. 3. Worsening radiculopathy. 4. Weakness. 5. Herniated nucleus pulposus, L4-L5 and L5-S1 herniation. 6. Neural foraminal stenosis, L4-L5 and L5-S1. POSTOPERATIVE DIAGNOSES: 1. Intractable back pain. 2. Intractable leg pain. 3. Worsening radiculopathy. 4. Weakness. 5. Herniated nucleus pulposus, L4-L5 and L5-S1 herniation. 6. Neural foraminal stenosis, L4-L5 and L5-S1. PROCEDURES PERFORMED: 1. Left-sided L4-L5 and L5-S1 microdiscectomy. 2. Bilateral L4-L5 and L5-S1 hemilaminotomy, foraminotomy, and medial facetectomy. 3. Bilateral L4-L5 and L5-S1 neural foraminotomy through a transpedicular intraforaminal approach. 4. Use of intraoperative microscope. 5. Supervision and interpretation of intraoperative fluoroscopy. 6. Supervision and interpretation of somatosensory-evoked potential and free-running EMG monitoring. ESTIMATED BLOOD LOSS: Less than 100 mL. COMPLICATIONS: None. INDICATIONS FOR THE PROCEDURE: The patient presents for intractable back pain and radiculopathy. The patient tried and failed a prolonged course of conservative management, including but not limited to chiropractic therapy, physical therapy, nonsteroidal anti-inflammatory drugs, medication, ice packs as well as epidural injection. Despite these therapies, the patient still developed recalcitrant pain and elected for definitive management in the form of left-sided L4-L5 and L5-S1 microdiscectomy; bilateral L4-L5 and L5-S1 hemilaminotomy, foraminotomy, and medial facetectomy; and bilateral L4-L5 and L5-S1 neural foraminotomy through a transpedicular intraforaminal approach. CONSENT: We had a long discussion with the patient regarding definitive surgical treatment options. The patient's MRI demonstrated herniated nucleus pulposus at L4-L5 and L5-S1 herniation; neural foraminal stenosis at L4-L5 and L5-S1, and as a result, I felt the patient would benefit from the discectomy as well as neural foraminotomy at this level. We had a long discussion with the patient regarding the risks, alternatives, and benefits of surgery. Our description of the risks included a discussion in person as well as a signed consent, which detailed all pertinent risks and the procedure itself. Briefly, our discussion included but was not limited to infection, bleeding, pseudarthrosis, spinal cord injury, neurovascular injury, dural tear, CSF leak, neuropathy, paralysis, permanent weakness/drop foot, paresthesias blindness, palsy, and weakness. The patient understood there may be a need for revision surgery or additional procedures. Approach-related complications including dysphonia, dysphagia, blindness, permanent vocal cord and neural injury, hematoma, swallowing and breathing difficulty. Medical complications including liver, kidney, shock, and cardiopulmonary failure. Anesthesia complications including , swelling. Damage to the musculature, larynx (voice injury or loss), esophagus (throat), trachea, blood vessels and muscles (muscular sprain) and lungs (pneumothorax) during this surgical procedure. Injury to deeper structures may be temporary or permanent. The patient understood these and elected to proceed. A written and verbal consent was given. We discussed the pros and cons of all the alternatives. We discussed the uncertainties associated with the decision. Afterwards, I assessed the patient's understanding and explored their preferences. All questions were answered and no guarantees were given. Medical clearance was obtained prior to surgery. OPERATIVE FINDINGS: At L4-L5, there was a significant neural foraminal stenosis. After the laminotomy was performed, upon neural dissection, it was determined this was secondary to a large disc herniation, which was carefully resected with a curette and upon dilation of the neural foramen itself, we determined there was a tear along the posterior longitudinal ligament. This tear was approximately 10 degrees cephalad to caudad and the edges appeared fresh. This was resected with a combination of arthroscopic and pituitaries until a complete and thorough decompression was performed. Next, the disc itself was irrigated with 20 mL of irrigation. Afterwards, the disc itself was evaluated and throughout the entire procedure, it was found to be soft and spongy; the disc was not calcified in any way, which led me to believe this was more of an acute traumatic process in coordination with the evaluation of the acute tear and fresh edges of the neural foramina. At L5-S1, we determined there was a significant component of neural foraminal stenosis. After completion of the hemilaminotomy on the left side, this was causing severe neural encroachment. After the neural elements were carefully mobilized with a Twain Harte 4 and the nerve root retractor, we determined the stenosis was secondary to a large disc herniation, which was left-sided. This was carefully resected with a combination of arthroscopic and 1.5 mm and 1 mm pituitaries until complete and thorough decompression was performed. The disc itself was soft and spongy; it did not have any characteristics of a calcified, desiccated, or dried disc. With a combination with the acute tear and fresh edges and on the fibers itself led me to believe this was more acute in nature. There was a component of neural foraminal stenosis on the right side at both levels, which was decompressed with a combination of Kerrison 3 and Kerrison 4 rongeurs and angled pituitaries. DESCRIPTION OF PROCEDURE: Under the benefit of general endotracheal anesthesia and with the assistance of the entire operative team, the patient was moved from the [facility] onto the operative table in the prone position on a Simba frame. The head was secured and positioned appropriately. Bilateral arms were secured with Gel Pads and foam, and all bony prominences were padded. The bilateral lower extremity SCD and FELIX hose were placed for DVT prophylaxis. A surgical timeout was called, which corroborated our planned procedure. Preoperative antibiotics were administered within 30 minutes of the incision for prophylaxis. Decadron was given for preoperative steroids. Using lateral radiography, the operative levels were delineated. An incision was marked based on our interpretation of lateral radiography and afterwards the body was prepped and draped in the usual sterile manner. The family was notified that we were ready to commence surgery and were called in the waiting room hourly for updates. An incision was based on our lateral fluoroscopic image to center the incision at the L5-S1 interspace. The wound was prepped and draped in the usual sterile fashion. Using a scalpel, a midline incision was taken down through the skin and subcutaneous tissues until the overlying hemilaminae of L4-L5 and L5-S1 were visualized. Next, using meticulous hemostasis, hemilamotomies were dissected and retractors were placed. Using a Taliaferro dental, we confirmed placement at the L4-L5 and L5-S1 interspace. We next turned our attention to our decompression. A standard hemilaminotomy, foraminotomy, and medial facetectomy was performed at each level in standard fashion using a Midas-Jorge type AM8 drill bit, straight and angled curettage, and Kerrison 4 rongeurs until the lateral thecal sac margin and traversing nerve root was visualized. All remainders of the ligamentum flavum and lateral bony margins were resected in total with angled curettage and Kerrison 4 rongeurs until the lateral thecal sac margin and traversing nerve root was visualized and decompressed. We next turned our attention toward our L4-L5 and L5-S1 microdiscectomy on the left side. A Twain Harte 4 was used to gently mobilize the thecal sac medially and this was held retracted with a bayonetted nerve root retractor. It was at this point that we noted a large broad-based disc protrusion with encroachment dorsally on the thecal sac neural foraminal contents. A bayonet and nerve root retractor was then placed carefully to retract the thecal sac and a discectomy was performed using a combination of a long-handled 15 blade scalpel, downgoing and straight pituitaries, and downgoing curettage. Afterward, the disc space was irrigated twice with 20 mL of antibiotic-impregnated saline. All loose and free-floating disc fragments were carefully resected with a narrow pituitary. Having been satisfied with our decompression after our discectomy of all neural elements, we next turned our attention to our neural foraminoplasty/foraminotomy. This was performed through a transpedicular intraforaminal approach using an access probe followed by a neuro-check device, which confirmed ventral placement of our nerve root. Once we confirmed we were safe, we next turned our attention towards placement of our size 10 file under direct microscopic visualization and under lateral fluoroscopy. Using pre- and post-reciprocation imaging, we were able to visualize our direct decompression given the reciprocation allowed for re-creation of the neural foraminal arch at L4-L5 and L5-S1. Afterwards, hemostasis was obtained with 60 mL of antibiotic-impregnated saline followed by FloSeal and Gelfoam. After sponge and needle count were found to be correct, we next turned our attention to closure. Closure consisted of 1-0 Vicryl in standard interrupted fashion. Zosyn was placed deep to the fascia and superficial to the fascia for antibiotic prophylaxis. Skin closure was performed with 2-0 Vicryl in interrupted fashion followed by a running Monocryl for the skin. Final dressings consisted of Dermabond for the superficial skin, Telfa, and Tegaderm. The patient tolerated the procedure well. The patient was extubated after the conclusion of surgery without incident. We discussed the findings of the surgery with the family upon completion of the case. At this point, the patient will be transferred to the spine floor for further observation. Nestor Maldonado M.D. DR: Nohemy JOB#: [id number] CC:
[2020-05-17] VITALS: BP 138/95
[2020-05-17] MEDS: ceFAZolin sod 1 GM in D5W 55 ML IV SCH ×2 (02:33→09:54)
[2020-05-17] MEDS: NS w/KCl 20mEq 1000ml 1,000 ML IV SCH (02:33)
[2020-05-17 04:00] VITALS: BP 142/93
--- NOTE | 2020-05-17 07:25 | NUR ---
NURSE HAND-OFF: Important Events on Shift: IV therapy Patient Status: Stable Diet: Regular Pending Orders: [] Pending Results/Labs:[] Pending MD notification:[] Latest Vital Signs: Temperature 98.0 , Pulse 95 , B/P 142 /93 , Respiratory Rate 18 , O2 SAT 98 , Nasal Cannula, O2 Flow Rate 2.0 . Vital Sign Comment: VS stable Latest Rodriguez Fall Score: 35 Fall Risk: Medium Risk Safety Measures: Call light Within Reach, Bed Alarm , Side Rails Side Rails x2, Bed position Low and Locked. Fall Precautions: Patient Fall Education Report given to Melita BRUNER.
--- NOTE | 2020-05-17 07:30 | NUR ---
NURSE NOTES: Patient is in bed awake and able to verbalize needs. Stable. Breathing is even and unlabored. Patient instructed to use call light for assistance, verbalized understanding. Patient is in bed in locked and lowest position with call light within reach. All safety measures provided. Will continue to monitor.
[2020-05-17 08:00] VITALS: BP 150/96
[2020-05-17] MEDS: Docusate 100mg cap ORAL SCH (09:30)
[2020-05-17] MEDS ORDERED: NS Irrig 1000ml ONE (10:00)
[2020-05-17] MEDS ORDERED: Neostigmine 1mg/ml 10ml Inj ONE (10:00)
[2020-05-17] MEDS ORDERED: Sterile Water Irrig 1000ml IRRIG ONE (10:00)
[2020-05-17] MEDS ORDERED: LR 1000ml ONE (10:00)
--- NOTE | 2020-05-17 10:00 | NUR ---
NURSE NOTES: Made rounds with Dr. Maldonado. Patient cleared for discharge. All discharge instructions and post op teaching given to patient by Dr. Maldonado. All questions and concerns addressed prior to discharge. Patient has all belongings. Patient's surgical dressing c/d/i.
--- NOTE | 2020-05-17 11:14 | NUR ---
NURSE NOTES: Patient discharged home as ordered. Stable. Skin is c/d/i. No IV access. Patient verbalized that he will get prescription filled at home pharmacy. Patient left with all belongings.
--- NOTE | 2020-05-18 13:46 | Discharge Summary ---
Discharge Summary Discharge Summary _ Date of admission: 05/16/2020 Date of discharge: 05/17/[address] Maldonado History of Present Illness and Brief Hospital Course Mr. Magallanes is a 64-year-old male with past medical history of L4-L5 and L5-S1 herniation who presented to the hospital for a scheduled bilateral hemilaminotomy, foraminotomy and left-sided microdiscectomy and decompression at L4-L5 and L5-S1 by Dr. Maldonado. Patient had intractable back pain, leg pain, and worsening radiculopathy along with weakness. He also had herniated nucleus pulposus and neuroforaminal sten osis at L4-L5 and L5-S1 herniation. Procedures performed include left-sided L4- L5 and L5-S1 microdiscectomy, bilateral L4-L5 and L5-S1 hemilaminotomy, foraminotomy, and medial face facetectomy. The patient tolerated the procedure well. Patient was monitored until the next day. Patient was medically stable for discharge and was discharged home on 05/17/2020. Consultants: None Discharge Condition Stable Final diagnoses History of L4-L5 and L5-S1 herniation Status post microdiscectomy, hemilaminotomy, foraminotomy, facet ectomy at L4-L5 L5-S1 I have been assigned to dictate discharge summary for this account. I was not involved in the patient's management Maximiliano Ramirez May 18, 2020 13:46
== END 2020-05-17 10:58 | disposition home or self-care (01) | DRG 520 ==
LOC: SDSOVERFLO 07:04 → 3E 14:42
DX: M51.16 Intervertebral disc disorders with radiculopathy, lumbar region (principal); M51.17 Intervertebral disc disorders with radiculopathy, lumbosacral region; M48.061 Spinal stenosis, lumbar region without neurogenic claudication; M48.07 Spinal stenosis, lumbosacral region; V89.2XXS Person injured in unspecified motor-vehicle accident, traffic, sequela
CPT/HCPCS: 36415; 72020; 76000; 86850; 86900; 86901; 87081; 94003; 94150; J2405; J2710